=== PATIENT | male | born 1950 | race Caucasian/White ===

== ENCOUNTER 2019-10-30 08:28 | Observation (INO) ==
[2019-10-30] MEDS ORDERED: Naloxone 0.4 MG/ML INJ IVP PRN ×2 (11:48→20:11)
[2019-10-30] MEDS ORDERED: cefTRIAXone 1,000 MG in Water for inj. (sterile) 10 ML IVP SCH (12:00)
[2019-10-30 12:11] LABS: Adenovirus Not Detected (Not Detect); Bordetella Pertussis Not Detected (Not Detect); Chlamydophila pneumoniae Not Detected (Not Detect); Coronavirus 229E Not Detected (Not Detect); Coronavirus HKU1 Not Detected (Not Detect); Coronavirus NL63 Not Detected (Not Detect); Coronavirus OC43 Not Detected (Not Detect); Human Metapneumovirus Not Detected (Not Detect); Human Rhinovirus/Enterovirus Not Detected (Not Detect); Influenza A Subtype 2009 H1 Not Detected (Not Detect); Influenza B Not Detected (Not Detect); Mycoplasma pneumoniae Not Detected (Not Detect); Parainfluenza Virus 1 Not Detected (Not Detect); Parainfluenza Virus 2 Not Detected (Not Detect); Parainfluenza Virus 3 Not Detected (Not Detect); Parainfluenza Virus 4 Not Detected (Not Detect); Respiratory Syncytial Virus Not Detected (Not Detect); SARS-CoV-2 Not Detected (Not Detect)
[2019-10-30] MEDS: MetroNIDAZOLE 500 MG/100 ML 500 MG/100 ML BAG IVPB SCH ×2 (13:26→16:18)
[2019-10-30] MEDS ORDERED: Dexamethasone 4 MG/ML VIAL ONE (16:38)
[2019-10-30] MEDS ORDERED: *HR* Rocuronium Bromide 50 MG/5 ML VIAL ONE (16:38)
[2019-10-30] MEDS ORDERED: Ondansetron 4 MG/2 ML VIAL ONE (16:38)
[2019-10-30] MEDS ORDERED: Lidocaine HCL 4 ML Topical Solution (Laryng-O-Jet Kit Sterile Pak) TP ONE (16:38)
[2019-10-30] MEDS ORDERED: Lidocaine -MPF 2% 2 ML VIAL ONE (16:38)
[2019-10-30] MEDS ORDERED: *HR* FentaNYL (PF) 100 MCG/2 ML VIAL ONE ×2 (16:39→18:24)
[2019-10-30] MEDS ORDERED: *HR* Propofol 200 MG/20 ML VIAL IVP ONE (16:39)
[2019-10-30] MEDS ORDERED: *HR* Vasopressin 20 UNIT/ML VIAL ONE (16:58)
[2019-10-30] MEDS ORDERED: Acetaminophen IV 1,000 MG/100 ML INFUS..BTL ONE (17:05)
[2019-10-30] MEDS ORDERED: Famotidine 20 MG/2 ML VIAL ONE (17:06)
[2019-10-30] MEDS ORDERED: *HR* Etomidate 40 MG/20 ML VIAL IVP ONE (17:06)
[2019-10-30] MEDS ORDERED: *HR* Labetalol 20 MG/4 ML SYRINGE IVP PRN (17:09)
[2019-10-30] MEDS ORDERED: *HR* HYDROmorphone PF 0.5 MG/0.5 ML SYRINGE IVP PRN (17:09)
[2019-10-30] MEDS ORDERED: Ondansetron 4 MG/2 ML VIAL IVP ONE (17:09)
[2019-10-30] MEDS ORDERED: *HR* PHENYLEPHRINE 1,000 MCG/10 ML SYRINGE IVP ONE (17:38)
[2019-10-30] MEDS ORDERED: *HR* Heparin 5,000 UNIT/ML VIAL SQ SCH (18:00)
[2019-10-30] MEDS ORDERED: Nitroglycerin 0.4 MG TAB.SUBL SL PRN (18:39)
[2019-10-31] MEDS: Acetaminophen IV 1,000 MG/100 ML INFUS..BTL IVPB SCH ×3 (00:26→11:54)
[2019-10-31] MEDS: Piperacillin/Tazobactam 3.375 GM in 0.9 % Sodium Chloride Mini Bag 100 ML IVPB SCH ×2 (00:35→07:43)
[2019-10-31 04:54] LABS: Basophils % 0.1 %; Hematocrit 39.8 % (37.5-50.1); Hemoglobin 12.6 g/dL (12.9-16.9); Immature Granulocytes % 0.6 % (0-4); Immature Platelets 6.2 % (1.1-6.1); Lymphocytes # 0.7 K/mcL (0.6-4.6); Lymphocytes % 7.8 %; Mean Corpuscular HGB Conc 31.7 g/dL (31.6-35.5); Mean Corpuscular Hemoglobin 27.8 pg (28.0-33.3); Mean Corpuscular Volume 87.9 fL (83.0-100.0); Mean Platelet Volume 10.2 fL (9.4-12.4); Monocytes # 0.4 K/mcL (0.0-1.3); Monocytes % 4.6 %; Neutrophils # 7.6 K/mcL (1.6-8.9); Platelet Count 136 K/mcL (140-400); Red Blood Count 4.53 M/mcL (4.19-5.50); Red Cell Distribution Width 13.5 % (11.5-14.5); Segmented Neutrophils % 86.9 %; White Blood Count 8.7 K/mcL (4.3-11.1)
[2019-10-31 05:03] LABS: Calcium 8.3 mg/dL (8.6-10.3); Potassium 4.2 mEq/L (3.5-5.1)
[2019-10-31] MEDS ORDERED: *HR* Heparin 5,000 UNIT/ML VIAL SQ SCH (06:00)
[2019-10-31] MEDS ORDERED: 0.9 % Sodium Chloride 1,000 ML IVC SCH (08:00)
[2019-10-31] MEDS ORDERED: Pantoprazole 40 MG VIAL IVP SCH (09:00)
[2019-10-31] MEDS ORDERED: Aspirin Enteric Coated 81 MG Tablet PO SCH (09:00)
[2019-10-31 11:10] VITALS: BP 102/55
== END 2019-10-31 12:20 | disposition home or self-care (01) ==
LOC: CDU → SUATTDRO 11:01 → 3ANU 16:53
PROVIDERS: ADMIT Student in an Organized Health Care Education/Training Program; ATTEND Internal Medicine